=== PATIENT | female | born 1995 | race African-American/Black ===

== ENCOUNTER 2023-12-21 18:41 | Emergency (ER) | payer OTHER ==
[~2023-12-21] VITALS: Ht 162.6 cm; Wt 74.8 kg
[2023-12-21 18:43] VITALS: BP 102/37; PULSE 76; RESP 16; TEMP 98.4; O2SAT 100
[2023-12-21 19:09] VITALS: BP 102/37; PULSE 76; RESP 16; TEMP 98.4; O2SAT 100
== END 2023-12-21 19:09 | disposition home or self-care (01) ==
LOC: MED 18:41
DX: Z48.03 Encounter for change or removal of drains (principal)
CPT/HCPCS: 99282